=== PATIENT | female | born 1965 | race Caucasian/White ===

== ENCOUNTER 2017-10-20 12:24 | Outpatient (CLI) | payer OTHER | END 2017-10-20 12:25 | disposition home or self-care (01) | LOC: LAB 12:24 | PROVIDERS: ATTEND Internal Medicine | DX: M25.50 Pain in unspecified joint (principal); M10.9 Gout, unspecified; M25.561 Pain in right knee | CPT/HCPCS: 36415; 84550 ==

== ENCOUNTER 2017-10-29 12:16 | Outpatient (CLI) | payer OTHER ==
--- NOTE | 2017-10-30 00:03 | MRI Report ---
EXAM: RIGHT KNEE MRI WITHOUT CONTRAST EXAM DATE: 10/29/2017 01:43 PM. CLINICAL HISTORY: Chronic right knee pain, possible arthritis. COMPARISON: None. TECHNIQUE: Multiplanar, multisequence T1-weighted and fluid-sensitive sequences of the knee without c ontrast. Other: None. FINDINGS: Bones: Large spurs medial and lateral femoral condyles. Moderate spurring medial and lateral tibial p lateau. Moderate spurring anterior aspect medial and lateral femoral condyles patellofemoral compartm ent. Probable benign 1 cm cartilaginous lesion distal femur metaphysis. Probable ossifying fibroma po sterior aspect distal femur metaphysis (image 16 series 601). Large spurs at posterior aspect distal medial and lateral femur metaphysis.. Articular Cartilage: Severe chondromalacia patella. Severe chondromalacia trochlear groove. Severe ch ondromalacia medial tibiofemoral compartment. Severe chondromalacia medial tibiofemoral compartment. Medial Meniscus: Complex tear posterior horn and body medial meniscus. Lateral Meniscus: The lateral meniscus is intact. Cruciate Ligaments: The anterior and posterior cruciate ligaments are intact. Collateral Ligaments: The medial collateral and lateral collateral ligamentous structures are intact. Tendons: The quadriceps, patellar, semimembranosus, and popliteus tendons are unremarkable. Musculature: No edema or fatty atrophy. Other: Small fluid collection lateral patellar recess. No popliteal cyst. No loose bodies. The media l and lateral retinacula are intact. The subcutaneous tissues and fat pads are unremarkable. IMPRESSION: 1. Complex tear body and posterior horn medial meniscus. 2. Severe patellofemoral compartment and severe tibiofemoral compartment chondromalacia. 3. Severe Kellgren Apolinar grade 4 osteoarthritis. [facility] MUSCULOSKELETAL RADIOLOGY SECTION Referring Provider Line: [phone] SITE ID: [id number]
== END 2017-10-29 12:17 | disposition home or self-care (01) ==
LOC: DI 12:16
PROVIDERS: ATTEND Orthopaedic Surgery
DX: S83.241A Other tear of medial meniscus, current injury, right knee, initial encounter (principal); M94.261 Chondromalacia, right knee; M17.11 Unilateral primary osteoarthritis, right knee

== ENCOUNTER 2018-05-23 14:31 | Emergency (ER) | payer OTHER ==
[2018-05-23] MEDS ORDERED: METOCLOPRAMIDE 10 MG/2 ML VIAL IVP STA (17:05)
[2018-05-23] MEDS ORDERED: SODIUM CHLORIDE 0.9% 1,000 ML IV ONE (17:05)
[2018-05-23] MEDS ORDERED: fentaNYL 100 MCG/2 ML VIAL IVP STA (17:05)
[2018-05-23] MEDS ORDERED: IOPAMIDOL-300 100 ML VIAL ONE (17:14)
[2018-05-23 17:43] LABS: BASOPHILS # (AUTO) 0.1 10^3/uL (0.0-0.1); BASOPHILS % (AUTO) 0.7 %; EOSINOPHILS # (AUTO) 0.2 10^3/uL (0.0-0.7); EOSINOPHILS % (AUTO) 1.9 %; HGB - HEMOGLOBIN 13.9 g/dL (12.0-16.0); LYMPHOCYTES # (AUTO) 1.9 10^3/uL (1.5-3.5); MEAN CORPUSCULAR HEMOGLOBIN 29.5 pg (27.0-31.0); MEAN CORPUSCULAR VOLUME 86.6 fL (81.0-99.0); MEAN PLATELET VOLUME 7.5 fL (7.9-10.8); MONOCYTES # (AUTO) 0.5 10^3/uL (0.0-1.0); MONOCYTES % (AUTO) 4.6 %; NEUTROPHILS # (AUTO) 7.4 10^3/uL (1.5-6.6); NEUTROPHILS % (AUTO) 73.8 %; PLT - PLATELET COUNT 382 10^3/uL (130-450); RED BLOOD COUNT 4.73 10^6/uL (4.20-5.40); RED CELL DISTRIBUTION WIDTH 12.7 % (12.0-15.0)
[2018-05-23 17:58] LABS: ALBUMIN 3.9 g/dL (3.2-5.5); ALBUMIN/GLOBULIN RATIO 1.1 (1.0-2.2); CALCIUM 8.9 mg/dL (8.5-10.3); CREATININE 0.5 mg/dL (0.4-1.0); TOTAL PROTEIN 7.4 g/dL (6.7-8.2)
[2018-05-23] MEDS ORDERED: IOPAMIDOL-300 100 ML VIAL IVP ONE (18:23)
--- NOTE | 2018-05-23 18:31 | CT Report ---
Reason: Increasing abdominal pain, no bowel movements, Procedure Date: 05/23/2018 Accession Number: [id number] / [id number] Procedure: CT - Abdomen/Pelvis W/ CPT Code: FULL RESULT: EXAM: CT ABDOMEN AND PELVIS EXAM DATE: 05/23/2018 06:22 PM. CLINICAL HISTORY: Increasing abdominal pain, no bowel movements. History of small bowel obstruction. COMPARISONS: ABDOMEN/PELVIS W/ 05/27/2015 10:58 AM. TECHNIQUE: Routine helical CT imaging was performed through the abdomen and pelvis. IV contrast: ISOVUE 300 100mL. Enteric contrast: No. Reconstructions: Coronal and sagittal. In accordance with CT protocol optimization, one or more of the following dose reduction techniques were utilized for this exam: automated exposure control, adjustment of mA and/or KV based on patient size, or use of iterative reconstructive technique. FINDINGS: Lung Bases: Unremarkable. Liver: Normal. No masses. Gallbladder/Bile Ducts: Cholecystectomy. No biliary duct dilatation. Spleen: Normal. Pancreas: Normal. Adrenal Glands: Normal. Kidneys: Normal. No masses or hydronephrosis. Peritoneal Cavity/Bowel: Normal. No free fluid, free air or adenopathy. No masses or acute inflammatory process. The appendix is well visualized and normal. Pelvic Organs: Hysterectomy. No stones in the small caliber urinary bladder. Marked amount of stool in the mildly distended distal third of the sigmoid colon and within the mildly distended rectum. Very small amount of symmetrical presacral edema. No rectal wall thickening. No adnexal masses. Vasculature: No aneurysms or other significant abnormality. Bones: No significant abnormality. Other: None. IMPRESSION: 1. Moderate rectal stool ball with suggestion of very early stercoral colitis. 2. Normal appendix. 3. Otherwise, unremarkable exam. [facility]
--- NOTE | 2018-05-23 19:41 | ED Physician Documentation ---
PD HPI ABD PAIN - Stated complaint Stated Complaint: POST OP CONSTIPATION/8 DAYS PO - Chief complaint Chief Complaint: Abd Pain - Additional information Additional information: 52-year-old female presents the emergency department with increasing generalized abdominal pain over the past several days. The patient is status post a recent knee replacement and has been on oral narcotic pain management. The patient reports increasing constipation. Today the patient has had significant abdominal pain which is associated with nausea. The patient does have a history of small bowel obstructions. The patient denies any fevers or chills. Symptoms are described as moderate. No other associated symptoms. No relieving factors Review of Systems Constitutional: denies: Fever, Chills Eyes: denies: Discharge Ears: denies: Ear pain Nose: denies: Congestion Throat: denies: Sore throat Cardiac: denies: Chest pain / pressure Respiratory: denies: Cough GI: reports: Abdominal Pain, Nausea, Constipation : denies: Dysuria Skin: denies: Rash Musculoskeletal: denies: Neck pain Neurologic: denies: Generalized weakness PD PAST MEDICAL HISTORY - Past Medical History Respiratory: Asthma Musculoskeletal: Osteoarthritis, Fibromyalgia - Past Surgical History Past Surgical History: Yes General: Cholecystectomy /PATTERN REPAIR PERSON: section, Hysterectomy - Present Medications Home Medications: Ambulatory Orders Medication Instructions Recorded Confirmed Albuterol Sulfate [Ventolin Hfa] 8 gm IH PRN 05/27/15 05/27/15 Hydrocodone/Acetaminophen 1 each PO DAILY PRN 05/27/15 05/27/15 [Hydrocodon-Acetaminophen 5-325] Oxycodone HCl/Acetaminophen 1 each PO Q6HR PRN #15 tablet 05/27/15 [Percocet 5-325 mg Tablet] Polyethylene Glycol 3350 [Miralax] 17 gm PO DAILY 4 Days #1 bottle 05/23/18 - Allergies Allergies/Adverse Reactions: Allergies Allergy/AdvReac Type Severity Reaction Status Date / Time hydromorphone HCl * Allergy Unknown Verified 05/23/18 14:38 [From Dilaudid] - Social History Does the pt smoke?: No Smoking Status: Never smoker Does the pt drink ETOH?: No Does the pt have substance abuse?: No - Immunizations Immunizations are current?: Yes PD ED PE NORMAL - General General: Alert and oriented X 3. No: No acute distress (The patient appears uncomfortable) - HEENT HEENT: Atraumatic, PERRL, EOMI, Ears normal - Neck Neck: Supple, no meningeal sign - Cardiac Cardiac: RRR, Strong equal pulses - Respiratory Respiratory: No respiratory distress, Clear bilaterally - Abdomen Abdomen: Soft, Non distended. No: Normal bowel sounds (Decreased bowel tones), Non tender (The patient has generalized tenderness, no rebound or peritoneal signs) - Derm Derm: Normal color - Extremities Extremities: No deformity, Normal ROM s pain, No edema - Neuro Neuro: Alert and oriented X 3, Normal speech - Psych Psych: Normal affect Results - Vitals Vitals: Vital Signs - 24 hr 05/23/18 14:36 Temperature 35.9 C L Heart Rate 96 Respiratory 18 Rate Blood Pressure 129/69 O2 Saturation 98 Oxygen O2 Source Room air - Labs Labs: Laboratory Tests 05/23/18 05/23/18 17:38 17:38 WBC 10.0 RBC 4.73 Hgb 13.9 Hct 41.0 MCV 86.6 MCH 29.5 MCHC 34.0 RDW 12.7 Plt Count 382 MPV 7.5 L Neut # (Auto) 7.4 H Lymph # (Auto) 1.9 Highland # (Auto) 0.5 Eos # (Auto) 0.2 Baso # (Auto) 0.1 Absolute Nucleated RBC 0.00 Nucleated RBC % 0.0 Sodium 139 Potassium 4.0 Chloride 102 Carbon Dioxide 28 Anion Gap 9.0 BUN 15 Creatinine 0.5 Estimated GFR (MDRD) 130 Glucose 107 H Calcium 8.9 Total Bilirubin 1.0 AST 17 ALT 24 Alkaline Phosphatase 85 Total Protein 7.4 Albumin 3.9 Globulin 3.5 Albumin/Globulin Ratio 1.1 Lipase 23 - Rads (name of study) CT abd/pelvis Radiology: Final report received (1. Moderate rectal stool ball with suggestion of very early stercoral colitis 2. Normal appendix. 3. Otherwise, unremarkable exam. ) PD MEDICAL DECISION MAKING - ED course ED course: The patient has a history of small bowel obstruction so a workup was performed to rule out small bowel obstruction. Since, no bowel obstruction was present and the patient's symptoms seem to be secondary to significant constipation a soapsuds enema was ordered. The patient did have significant improvement and had a large bowel movement. On reevaluation the patient felt much better and her symptoms were mostly resolved. Presently the patient appears appropriate for discharge and ongoing outpatient management. I discussed with her warning signs and recommended returning to the emergency department immediately for any worsening or any concerns. Departure - Departure Disposition: Home, Self Care Clinical Impression: Constipation due to pain medication Abdominal pain Qualifiers: Abdominal location: generalized Qualified Code(s): R10.84 - Generalized abdominal pain Condition: Good Instructions: Abdominal Pain, ED Constipation Follow-Up: Yessica Fischer PA [Primary Care Provider] - Within 1 week Prescriptions: Polyethylene Glycol 3350 [Miralax] 17 gm PO DAILY 4 Days #1 bottle Comments: Please return for worsening symptoms or any concerns
[2018-05-23 20:04] VITALS: BP 122/71
== END 2018-05-23 20:05 | disposition home or self-care (01) ==
LOC: ED 14:31
DX: K59.03 Drug induced constipation (principal); T40.605A Adverse effect of unspecified narcotics, initial encounter; R10.84 Generalized abdominal pain; M79.7 Fibromyalgia; Z96.659 Presence of unspecified artificial knee joint
CPT/HCPCS: 36415; 74177; 80053; 83690; 85025; 96361; 96374; 99283; J2765; Q9967

== ENCOUNTER 2020-05-27 16:22 | Outpatient (CLI) | payer OTHER ==
--- NOTE | 2020-05-27 16:54 | XRAY Report ---
PROCEDURE: Shoulder 3 View RT INDICATIONS: Hx of ankylosing spondylitis TECHNIQUE: 3 views of the shoulder were acquired. COMPARISON: None. FINDINGS: Bones: No fractures or dislocations but there has been a prior acromioplasty of the AC joint at the right shoulder. A mild degree of glenohumeral joint osteoarthritis is present. No recent trauma is se en.. No suspicious bony lesions. Visualized ribs appear intact. Soft tissues: No suspicious soft tissue calcifications. IMPRESSION: Acromioplasty at the AC joint, mild degenerative osteoarthritis at the glenohumeral join t, no trauma found. Reviewed by: Tito Espinosa MD on 05/27/2020 4:52 PM PDT Approved by: Tito Espinosa MD on 05/27/2020 4:52 PM PDT Station ID: [id number]
== END 2020-05-27 16:23 | disposition home or self-care (01) ==
LOC: DI 16:22
PROVIDERS: ATTEND Physician Assistant
DX: M19.011 Primary osteoarthritis, right shoulder (principal); Z96.611 Presence of right artificial shoulder joint

== ENCOUNTER 2020-06-04 11:30 | Outpatient (CLI) | payer OTHER | END 2020-06-04 11:31 | disposition home or self-care (01) | LOC: COV 11:30 | PROVIDERS: ATTEND Family Medicine | DX: R05 Cough (principal); Z20.828 Contact with and (suspected) exposure to other viral communicable diseases; R06.02 Shortness of breath; R53.83 Other fatigue; R43.9 Unspecified disturbances of smell and taste; M79.10 Myalgia, unspecified site; R19.7 Diarrhea, unspecified | CPT/HCPCS: 81599 ==

== ENCOUNTER 2020-06-06 13:58 | Outpatient (CLI) | payer OTHER ==
[2020-06-06 14:11] LABS: BASOPHILS # (AUTO) 0.1 10^3/uL (0.0-0.1); BASOPHILS % (AUTO) 0.6 %; EOSINOPHILS # (AUTO) 0.1 10^3/uL (0.0-0.7); EOSINOPHILS % (AUTO) 1.8 %; LYMPHOCYTES # (AUTO) 2.7 10^3/uL (1.5-3.5); LYMPHOCYTES % (AUTO) 33.6 %; MEAN CORPUSCULAR HEMOGLOBIN 29.2 pg (27.0-31.0); MEAN CORPUSCULAR HGB CONC 33.6 g/dL (32.0-36.0); MEAN CORPUSCULAR VOLUME 86.8 fL (81.0-99.0); MEAN PLATELET VOLUME 9.2 fL (7.9-10.8); MONOCYTES # (AUTO) 0.4 10^3/uL (0.0-1.0); MONOCYTES % (AUTO) 5.4 %; NEUTROPHILS # (AUTO) 4.6 10^3/uL (1.5-6.6); NEUTROPHILS % (AUTO) 58.1 %; PLT - PLATELET COUNT 303 10^3/uL (130-450); RED BLOOD COUNT 5.14 10^6/uL (4.20-5.40); RED CELL DISTRIBUTION WIDTH 11.7 % (12.0-15.0); WHITE BLOOD COUNT 7.9 x10^3/uL (4.8-10.8)
--- NOTE | 2020-06-06 16:01 | XRAY Report ---
PROCEDURE: Chest 2 View X-Ray INDICATIONS: COUGH TECHNIQUE: 2 view(s) of the chest. COMPARISON: None. FINDINGS: Surgical changes and devices: None. Lungs and pleura: No pleural effusions or pneumothorax. Lungs are clear. Mediastinum: Mediastinal contours are normal. Heart size is normal. Bones and chest wall: No suspicious bony abnormalities. Soft tissues appear unremarkable. IMPRESSION: Normal for age, source of current symptoms is not seen. Reviewed by: Tito Espinosa MD on 06/06/2020 4:00 PM PDT Approved by: Tito Espinosa MD on 06/06/2020 4:00 PM PDT Station ID: [id number]
== END 2020-06-06 13:59 | disposition home or self-care (01) ==
LOC: LAB 13:58 → DI 13:59
PROVIDERS: ATTEND Physician Assistant
DX: R05 Cough (principal); R06.00 Dyspnea, unspecified; R50.9 Fever, unspecified; R53.83 Other fatigue
CPT/HCPCS: 36415; 71046; 85025

== ENCOUNTER 2020-08-11 17:47 | Outpatient (CLI) | payer OTHER | END 2020-08-11 17:48 | disposition home or self-care (01) | LOC: LAB 17:47 | PROVIDERS: ATTEND Internal Medicine | DX: Z11.52 Encounter for screening for COVID-19 (principal) ==

== ENCOUNTER 2020-09-26 16:27 | Outpatient (CLI) | payer OTHER ==
--- NOTE | 2020-09-26 22:16 | XRAY Report ---
PROCEDURE: Thoracic Spine 3 View INDICATIONS: NEURALGIA TECHNIQUE: 3 views of the thoracic spine were acquired. COMPARISON: None. FINDINGS: Bones: No fractures or dislocations. No suspicious bony lesions. 12 pairs of ribs are noted, and a ppear intact where visualized. Mild mid and lower thoracic spine degenerative disc disease. Soft tissues: No paravertebral stripe thickening. IMPRESSION: Mild multilevel degenerative disease. No fracture. No acute osseous lesion. If there is continued clinical concern for pathology, then MRI should be considered for further evaluation. Reviewed by: Wendy Benavides MD, PhD on 09/26/2020 10:15 PM PST Approved by: Wendy Benavides MD, PhD on 09/26/2020 10:15 PM PST Station ID: [id number]
--- NOTE | 2020-09-26 22:18 | XRAY Report ---
PROCEDURE: Cervical Spine 3 View INDICATIONS: CERVICALGIA TECHNIQUE: 3 view(s) of the cervical spine were acquired. COMPARISON: None. FINDINGS: Bones: No fractures or dislocations to the T1 level. The lateral masses of C1 appear intact on the odontoid view. No suspicious bony lesions. Moderate C4-C5 and C5-C6 degenerative disc disease. Mild bilateral C4-C5 and C5-C6 uncovertebral joint hypertrophy.. Soft tissues: No prevertebral soft tissue swelling. IMPRESSION: 1. Multilevel degenerative disease. 2. Multilevel uncovertebral arthropathy. 3. No fracture. No acute osseous lesion. If there is continued clinical concern for pathology, then M RI should be considered for further evaluation. Reviewed by: Wendy Benavides MD, PhD on 09/26/2020 10:17 PM PST Approved by: Wendy Benavides MD, PhD on 09/26/2020 10:17 PM PST Station ID: [id number]
== END 2020-09-26 16:28 | disposition home or self-care (01) ==
LOC: DI.N 16:27
PROVIDERS: ATTEND Physician Assistant
DX: M50.321 Other cervical disc degeneration at C4-C5 level (principal); M51.34 Other intervertebral disc degeneration, thoracic region; R51.9 Headache, unspecified; M79.10 Myalgia, unspecified site; M79.2 Neuralgia and neuritis, unspecified

== ENCOUNTER 2021-09-08 08:00 | Outpatient (CLI) | payer BC, OTHER ==
--- NOTE | 2021-09-08 08:45 | XRAY Report ---
PROCEDURE: Chest 2 View X-Ray INDICATIONS: CHEST PAIN TECHNIQUE: 2 view(s) of the chest. COMPARISON: June 06, 2020. FINDINGS: SUPPORT DEVICES: None. LUNGS/PLEURA: Mild coarsened interstitial markings. No focal consolidation, pleural effusion or space -occupying pneumothorax. MEDIASTINUM: The cardiomediastinal silhouette is within normal limits. BONES/SOFT TISSUES: No acute abnormality. IMPRESSION: 1.No acute cardiopulmonary abnormality. Reviewed by: Flavio Perez MD on 09/08/2021 8:44 AM PST Approved by: Flavio Perez MD on 09/08/2021 8:44 AM [facility] Station ID: [id number]
== END 2021-09-08 23:59 | disposition home or self-care (01) ==
LOC: DI.S 08:00
PROVIDERS: ATTEND Physician Assistant
DX: R07.89 Other chest pain (principal)

== ENCOUNTER 2021-09-08 08:12 | Outpatient (CLI) | payer BC | END 2021-09-08 08:13 | disposition short-term general hospital (02) | LOC: EMS 08:12 | DX: R07.9 Chest pain, unspecified (principal) | CPT/HCPCS: A0425; A0427 ==

== ENCOUNTER 2022-04-15 08:00 | Outpatient (CLI) | payer BC, OTHER ==
--- NOTE | 2022-04-15 15:56 | XRAY Report ---
PROCEDURE: Hips 2V BILAT INDICATIONS: BILATERAL HIP PAIN TECHNIQUE: 2 views of the hip were acquired. COMPARISON: None FINDINGS: Bones: No fractures or dislocations. No suspicious bony lesions. The visualized pelvic ring appear s intact. Mild joint space narrowing in particular osteophyte formation at the bilateral hip joints. Soft tissues: No suspicious soft tissue calcifications or masses. IMPRESSION: Bilateral hip osteoarthritis. No acute fracture. No osseous lesion. If symptoms and/or clinical suspi cion for pathology continue, further assessment with repeat plain films, or advanced imaging (e.g., C T, MRI, or bone scan) is recommended for further assessment. Reviewed by: Sachin Lord MD on 04/15/2022 3:54 PM PDT Approved by: Sachin Lord MD on 04/15/2022 3:54 PM PDT Station ID: [id number]
== END 2022-04-15 23:59 | disposition home or self-care (01) ==
LOC: DI.S 08:00
PROVIDERS: ATTEND Physician Assistant Medical
DX: M16.0 Bilateral primary osteoarthritis of hip (principal)

== ENCOUNTER 2022-06-09 18:49 | Outpatient (CLI) | payer BC, OTHER ==
--- NOTE | 2022-06-09 10:01 | XRAY Report ---
PROCEDURE: Chest 2 View X-Ray INDICATIONS: CHEST CONGESTION TECHNIQUE: 2 view(s) of the chest. COMPARISON: None. FINDINGS: Surgical changes and devices: None. Lungs and pleura: No pleural effusions or pneumothorax. Lungs are clear. Mediastinum: Mediastinal contours are normal. Heart size is normal. Bones and chest wall: No suspicious bony abnormalities. Soft tissues appear unremarkable. IMPRESSION: No acute cardiopulmonary pathology. Reviewed by: Rey Vazquez MD on 06/09/2022 10:00 AM PDT Approved by: Rey Vazquez MD on 06/09/2022 10:00 AM PDT Station ID: [id number]
== END 2022-06-09 18:50 | disposition home or self-care (01) ==
LOC: DI.S 18:49
PROVIDERS: ATTEND Physician Assistant Medical
DX: R05.9 Cough, unspecified (principal); R09.89 Other specified symptoms and signs involving the circulatory and respiratory systems

== ENCOUNTER 2022-10-02 07:00 | Outpatient (CLI) | payer BC, OTHER ==
--- NOTE | 2022-10-02 17:10 | XRAY Report ---
PROCEDURE: Knee 3 View LT INDICATIONS: LEFT KNEE PAIN TECHNIQUE: 3 views of the left knee(s) were acquired. COMPARISON: None. FINDINGS: Bones: No fractures or dislocations. No suspicious bony lesions. Mild medial and lateral compartmen elvia joint space and narrowing with moderate patellofemoral joint space narrowing and marginal osteoph ytes. Soft tissues: No joint effusion. No suspicious soft tissue calcifications. IMPRESSION: Osteoporosis particularly in the patellofemoral compartment. No fracture. Reviewed by: Marc Giron MD on 10/02/2022 4:09 PM [place] Approved by: Marc Giron MD on 10/02/2022 4:09 PM [place] Station ID: [id number]
== END 2022-10-02 23:59 | disposition home or self-care (01) ==
LOC: DI.S 07:00
PROVIDERS: ATTEND Physician Assistant
DX: M17.12 Unilateral primary osteoarthritis, left knee (principal); M81.8 Other osteoporosis without current pathological fracture

== ENCOUNTER 2022-12-01 08:32 | Outpatient (CLI) | payer BC ==
--- NOTE | 2022-12-01 16:48 | MRI Report ---
PROCEDURE: KNEE WO - LT INDICATIONS: INTERNAL DERANGEMENT OF LEFT KNEE TECHNIQUE: Noncontrast sagittal PD fast spin echo and T2 fast spin echo with fat saturation, sagittal 3-D gradie nt sequence with fat saturation; coronal T1 spin echo and PD fast spin echo with fat saturation, and axial PD fast spin echo with fat saturation through the knee. COMPARISON: None. FINDINGS: Image quality: Excellent. Menisci: There is linear oblique high T2 signal intensity traversing the middle and peripheral thirds of the medial meniscal body and posterior horn, demonstrating inferior articular surface extension, indicating oblique tearing. Vague linear oblique high T2 signal intensity traverses the middle and pe ripheral thirds of the lateral meniscal body, demonstrating inferior articular surface extension, ind icating oblique tearing. Cruciate ligaments: The anterior and posterior cruciate ligaments appear intact. Medial structures: The medial collateral ligament appears intact. Visualized portions of the pes ans erinus tendons appear normal. No abnormal bursal fluid. Lateral structures: The lateral collateral ligament, long and short heads of the biceps femoris tend on appear intact. The popliteus tendon appears. Iliotibial band appears normal. Anterior structures: The quadriceps and patellar tendons appear intact. Mild T2 signal elevation wit hin the quadriceps and patellar tendons at the patellar insertion sites. Patellar alignment is normal . No femoral trochlear dysplasia or ventral trochlear prominence. No edema in the infrapatellar fat pad. Bones and cartilage: No bone marrow contusions or fractures. There is mild subchondral degenerative marrow edema within the central tibial plateau. Moderate tricompartmental periarticular osteophyte fo rmation. Severe articular cartilage loss overlies the mid and posterior weightbearing aspects of the medial femoral condyle. Moderate articular cartilage loss overlies the weightbearing aspects of the m edial tibial plateau. Mild articular cartilage loss diffusely overlies the weightbearing aspects of t he lateral femoral condyle and lateral tibial plateau. Moderate articular cartilage loss overlies the medial and lateral patellar facets. Joint space: There is a small knee joint effusion and a trace Peña's cyst. Normal appearing synovi al plicae are incidentally noted. IMPRESSION: 1. Tricompartmental osteophyte is with associated articular cartilage loss. 2. Medial and lateral meniscal tearing. 3. Mild quadriceps and patellar tendinopathy. 4. Knee joint effusion and trace Peña's cyst. Reviewed by: Sachin Lord MD on 12/01/2022 4:47 PM PDT Approved by: Sachin Lord MD on 12/01/2022 4:47 PM PDT Station ID: [id number]
== END 2022-12-01 08:33 | disposition home or self-care (01) ==
LOC: DI 08:32
PROVIDERS: ATTEND Physician Assistant
DX: M23.92 Unspecified internal derangement of left knee (principal); M25.762 Osteophyte, left knee; M94.262 Chondromalacia, left knee; S83.242A Other tear of medial meniscus, current injury, left knee, initial encounter; S83.282A Other tear of lateral meniscus, current injury, left knee, initial encounter; M67.864 Other specified disorders of tendon, left knee; M25.462 Effusion, left knee; M71.22 Synovial cyst of popliteal space [Baker], left knee

== ENCOUNTER 2023-02-14 07:17 | Outpatient (CLI) | payer BC ==
--- NOTE | 2023-02-14 12:01 | XRAY Report ---
PROCEDURE: Shoulder 3 View LT INDICATIONS: LEFT SHOULDER PAIN TECHNIQUE: 3 views of the shoulder were acquired. COMPARISON: None. FINDINGS: Bones: No fractures or dislocations. Moderate AC joint degeneration. There may be slight undersurfac e spurring of the lateral acromion. No suspicious bony lesions. Visualized ribs appear intact. Soft tissues: No suspicious soft tissue calcifications. IMPRESSION: 1. No acute process. 2. AC joint degeneration and undersurface irregularity may predispose to rotator cuff injury. Clinica l correlation recommended. 3. No suspicious soft tissue calcifications in the rotator cuff region. Reviewed by: Dania Cabrera MD on 02/14/2023 10:59 AM [facility] Approved by: Dania Cabrera MD on 02/14/2023 10:59 AM [facility] Station ID: [id number]
== END 2023-02-14 23:59 | disposition home or self-care (01) ==
LOC: DI.S 07:17
PROVIDERS: ATTEND Physician Assistant
DX: M19.012 Primary osteoarthritis, left shoulder (principal)

== ENCOUNTER 2023-03-10 14:40 | Outpatient (CLI) | payer BC, OTHER | END 2023-03-10 23:59 | disposition critical access hospital (66) | LOC: EMS 14:40 | DX: R07.81 Pleurodynia (principal); M79.621 Pain in right upper arm; V53.6XXA Passenger in pick-up truck or van injured in collision with car, pick-up truck or van in traffic accident, initial encounter; Y92.414 Local residential or business street as the place of occurrence of the external cause | CPT/HCPCS: A0425; A0429 ==

== ENCOUNTER 2023-03-10 15:29 | Emergency (ER) | payer BC ==
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
[2023-03-10] MEDS ORDERED: SODIUM CHLORIDE 0.9% 1,000 ML IV STA (16:35)
[2023-03-10] MEDS ORDERED: KETOROLAC 15 MG/ML VIAL IVP STA (16:35)
[2023-03-10] MEDS ORDERED: fentaNYL 100 MCG/2 ML VIAL IVP STA ×2 (16:36→18:19)
--- OUTSIDE RECORDS SUMMARY | 2023-03-10 16:43 | EXTERNAL MEDICAL SUMMARY RPT | Continuity of Care Document ---
Author Name Unknown Address [address] [place] [address] Phone Organization [facility] Address [address] [place] [address] Phone Care Team Providers Care Video News Editor Name Role Phone Unavailable Unavailable Unavailable Roberth Ambriz Pa-C Unavailable Unavailable Problems date description facility 2023-02-14 00:00 Pain of left shoulder joint [facility] [place] 2023-02-14 00:00 Asthma [facility] [place] 2023-02-14 00:00 Impingement syndrome of shoulder region [facility] [place] 2023-02-14 00:00 Asthma, unspecified [facility] [place] 2023-02-14 00:00 Pain in joint involv ing shoulder region [facility] [place] 2023-02-14 00:00 Other affections of shoulder region, not elsewhere classified [facility] [place] 2023-02-14 00:00 Pulmonary emphysema [facility] [place] 2023-02-14 00:00 Other emphysema [facility] [place] 2023-02-14 00:00 Unspecified asthma, uncomplicat ed [facility] [place] 2023-02-14 00:00 Pain in left shoulder [facility] [place] 2023-02-14 00:00 Impingement syndrome of left shoulder [facility] [place] 2023-02-15 00:00 Asthma [facility] [place] 2023-02-15 00:00 Asthma, unspecified [facility] [place] 2023-02-15 00:00 Pulmonary emphysema [facility] [place] 2023-02-15 00:00 Other emphysema [facility] [place] 2023-02-15 00:00 Unspecified asthma, uncomplicat ed [facility] [place] Procedures date description facility 2023-02-14 00:00 Visit Code Hold [facility] [place] 2023-02-14 00:00 XR SHOULDER 2-3 VIEW [facility] [place] Social History date description facility 2023-02-14 00:00 Never smoker [facility] [place] Vital Signs date measurement value units 2023-02-14 00:00 BMI 35.56 kg/m2 2023-02-14 00:00 BP_diastolic 78 mmHg 2023-02-14 00:00 BP_systolic 132 mmHg 2023-02-14 00:00 heart_rate 82 /min 2023-02-14 00:00 height_metric 160.02 cm 2023-02-14 00:00 height_standard 63 in 2023-02-14 00:00 respiration_rate 17 /min 2023-02-14 00:00 temperature_metric 36.5 C 2023-02-14 00:00 temperature_standard 97.7 F 2023-02-14 00:00 weight_metric 90.72 kg 2023-02-14 00:00 weight_standard 200 lb
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
[2023-03-10 18:37] VITALS: BP 125/76
[2023-03-10] MEDS ORDERED: iohexoL-300 100 ML VIAL IVP ONE (19:30)
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
== END 2023-03-10 19:55 | disposition home or self-care (01) ==
LOC: ED 15:29
DX: S50.11XA Contusion of right forearm, initial encounter (principal); S20.211A Contusion of right front wall of thorax, initial encounter; V89.2XXA Person injured in unspecified motor-vehicle accident, traffic, initial encounter; Y92.410 Unspecified street and highway as the place of occurrence of the external cause; Z79.899 Other long term (current) drug therapy
CPT/HCPCS: 71260; 73090; 74177; 96374; 96376; 99283; 99284; Q9967

== ENCOUNTER 2024-04-04 08:00 | Outpatient (CLI) | payer BC, OTHER ==
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
== END 2024-04-04 23:59 | disposition home or self-care (01) ==
LOC: DI.S 08:00
PROVIDERS: ATTEND Registered Nurse
DX: M25.552 Pain in left hip (principal); R93.6 Abnormal findings on diagnostic imaging of limbs